=== PATIENT | female | born 1950 | race Caucasian/White ===

== ENCOUNTER → 2016-06-07 | Outpatient (CLI) | payer OTHER ==
[~2016-06-07] MED LIST: ASPIRIN81 M1 PO; B-121000 MCG PO; BACTROBAN OINT22 GM PO; CIPRO250 MG PO; COREG6.25 MG PO; GLIPIZIDE5 MG PO; LASIX40 MG PO; LEVOTHYROXINE0.2 MG PO; LISINOPRIL20 MG PO; LYRICA50 MG PO; METFORMIN1000 MG PO; PERCOCET 325 MG1 TA2 PO; POTASSIUM20 MEQ PO; PRENATAL 1 PLUS1 TAB PO; PROTONIX40 MG PO; ROCEPHIN1 GM/50 M1 IV; SIMVASTATIN40 MG PO; SYNTHROID,LEV125 MCG PO; SYNTHROID0.15 MG PO; VITAMIN D32000 I1 PO
[2016-06-07 11:55] LABS: BASO % 0.5 % (0.0-1.0); EOS # 0.3 10*3/uL (0.0-0.4); EOS % 4.4 % (1.0-4.0); HEMATOCRIT 37.8 % (37.0-47.0); HEMOGLOBIN 11.8 g/dl (12.0-16.0); LYMPH % 16.8 % (27.0-41.0); MEAN CELL VOLUME 91.1 fl (81.0-99.0); MEAN CORPUSCULAR HGB 28.4 pg (27.0-31.0); MEAN CORPUSCULAR HGB CONC 31.2 g/dl (33.0-37.0); MEAN PLATELET VOLUME 11.8 fl (9.6-12.3); MONO # 0.9 10*3/uL (0.1-1.0); MONO % 13.9 % (3.0-9.0); NEUT # 3.9 10*3/uL (2.3-7.9); NEUT % 63.9 % (47.0-73.0); PLATELET COUNT AUTOMATED 174 10*3/uL (130-400); RED BLOOD COUNT 4.15 10*6/uL (4.10-5.10); RED CELL DISTRI WIDTH 13.2 % (0-14.5); WHITE BLOOD COUNT 6.1 10*3/uL (4.8-10.8)
[2016-06-07 12:21] LABS: CPK 41 U/L (26-192)
[2016-06-07 12:22] LABS: TROPONIN I < 0.015 ng/ml (<0.5)
== END | disposition home or self-care (01) ==
LOC: LAB 11:28
PROVIDERS: Nurse Practitioner
DX: R07.9 Chest pain, unspecified (principal)

== ENCOUNTER 2016-08-15 12:11 | Inpatient (IN) | payer OTHER ==
[~2016-08-15] VITALS: Ht 167.6 cm; Wt 92.6 kg
[2016-08-15 12:34] VITALS: BP 164/76
[2016-08-15 14:23] LABS: BASO % 0.6 % (0.0-1.0); EOS # 0.3 10*3/uL (0.0-0.4); EOS % 4.7 % (1.0-4.0); HEMATOCRIT 31.4 % (37.0-47.0); HEMOGLOBIN 9.7 g/dl (12.0-16.0); LYMPH # 1.3 10*3/uL (1.3-4.4); LYMPH % 19.9 % (27.0-41.0); MEAN CELL VOLUME 96.9 fl (81.0-99.0); MEAN CORPUSCULAR HGB 29.9 pg (27.0-31.0); MEAN CORPUSCULAR HGB CONC 30.9 g/dl (33.0-37.0); MEAN PLATELET VOLUME 10.3 fl (9.6-12.3); MONO # 0.4 10*3/uL (0.1-1.0); MONO % 5.9 % (3.0-9.0); NEUT # 4.5 10*3/uL (2.3-7.9); NEUT % 68.3 % (47.0-73.0); PLATELET COUNT AUTOMATED 157 10*3/uL (130-400); RED BLOOD COUNT 3.24 10*6/uL (4.10-5.10); WHITE BLOOD COUNT 6.6 10*3/uL (4.8-10.8)
[2016-08-15 14:30] LABS: PROTHROMBIN TIME 10.3 SECONDS (9.0-12.4)
[2016-08-15 14:38] LABS: ALBUMIN 2.7 gm/dl (3.1-4.5); BILIRUBIN, TOTAL 0.4 mg/dl (0.2-1.0); POTASSIUM 5.1 mmol/L (3.5-5.1); TOTAL PROTEIN 6.1 gm/dL (6.4-8.2)
[2016-08-15 15:15] VITALS: BP 158/76
[2016-08-15 16:40] VITALS: BP 170/62
[2016-08-15] MEDS ORDERED: K-TAB10 MEQ PO (18:01)
[2016-08-15 18:02] LABS: CKMB 1.3 ng/ml (0.5-3.6); TROPONIN I 0.026 ng/ml (<0.045)
[2016-08-15 20:00] VITALS: BP 171/67
[2016-08-15 21:30] VITALS: BP 154/64
[2016-08-16] VITALS: BP 129/65
[2016-08-16 00:45] LABS: TROPONIN I 0.018 ng/ml (<0.045)
[2016-08-16 05:50] LABS: CKMB 0.9 ng/ml (0.5-3.6); TROPONIN I 0.017 ng/ml (<0.045)
[2016-08-16 06:06] LABS: HEMOGLOBIN A1c 7.1 % (4.8-5.6)
[2016-08-16 06:13] LABS: BASO % 0.5 % (0.0-1.0); EOS # 0.2 10*3/uL (0.0-0.4); EOS % 2.4 % (1.0-4.0); LYMPH # 1.7 10*3/uL (1.3-4.4); LYMPH % 25.2 % (27.0-41.0); MEAN CELL VOLUME 96.3 fl (81.0-99.0); MEAN CORPUSCULAR HGB 29.6 pg (27.0-31.0); MEAN CORPUSCULAR HGB CONC 30.8 g/dl (33.0-37.0); MEAN PLATELET VOLUME 11.2 fl (9.6-12.3); MONO # 0.6 10*3/uL (0.1-1.0); MONO % 8.5 % (3.0-9.0); NEUT # 4.1 10*3/uL (2.3-7.9); NEUT % 62.9 % (47.0-73.0); PLATELET COUNT AUTOMATED 164 10*3/uL (130-400); RED CELL DISTRI WIDTH 14.9 % (0-14.5); WHITE BLOOD COUNT 6.6 10*3/uL (4.8-10.8)
[2016-08-16 06:16] LABS: ALBUMIN 2.5 gm/dl (3.1-4.5); BILIRUBIN, TOTAL 0.4 mg/dl (0.2-1.0); FREE T4 0.41 ng/dl (0.76-1.46); MAGNESIUM 1.8 mg/dL (1.5-2.1); PHOSPHOROUS 3.6 mg/dL (2.5-4.9); POTASSIUM 4.6 mmol/L (3.5-5.1); TOTAL PROTEIN 5.4 gm/dL (6.4-8.2)
[2016-08-16 06:21] LABS: THYROID STIM HORMONE (HS) 8.93 uIU/ml (0.358-4.75)
[2016-08-16 06:36] LABS: PROTHROMBIN TIME 10.5 SECONDS (9.0-12.4)
[2016-08-16 07:39] LABS: FOLIC ACID > 24.00 ng/mL (>5.38)
[2016-08-16 08:00] VITALS: BP 134/56
[2016-08-16 11:02] LABS: VITAMIN D, 25-HYDROXY 12.9 ng/mL (30-100)
[2016-08-16 12:00] VITALS: BP 133/67
[2016-08-16 16:00] VITALS: BP 138/60
== END 2016-08-16 17:55 | disposition short-term general hospital (02) | DRG 533 ==
LOC: ED 12:11 → 5E 15:54 → EDHOLD 15:54 → 5E 16:10
PROVIDERS: Internal Medicine; Nurse Practitioner Family
DX: S72.401A Unspecified fracture of lower end of right femur, initial encounter for closed fracture (principal); E43 Unspecified severe protein-calorie malnutrition; E87.0 Hyperosmolality and hypernatremia; I13.0 Hypertensive heart and chronic kidney disease with heart failure and stage 1 through stage 4 chronic kidney disease, or unspecified chronic kidney disease; I50.42 Chronic combined systolic (congestive) and diastolic (congestive) heart failure; E03.9 Hypothyroidism, unspecified; Z96.1 Presence of intraocular lens; F17.210 Nicotine dependence, cigarettes, uncomplicated; E11.65 Type 2 diabetes mellitus with hyperglycemia; E78.5 Hyperlipidemia, unspecified; W19.XXXA Unspecified fall, initial encounter; E11.49 Type 2 diabetes mellitus with other diabetic neurological complication; E11.22 Type 2 diabetes mellitus with diabetic chronic kidney disease; N18.3 Chronic kidney disease, stage 3 (moderate); I25.10 Atherosclerotic heart disease of native coronary artery without angina pectoris; I25.2 Old myocardial infarction; Z90.710 Acquired absence of both cervix and uterus; Z98.49 Cataract extraction status, unspecified eye; Z82.49 Family history of ischemic heart disease and other diseases of the circulatory system; Z98.84 Bariatric surgery status; Z80.0 Family history of malignant neoplasm of digestive organs; Z80.3 Family history of malignant neoplasm of breast; Z80.41 Family history of malignant neoplasm of ovary; Z88.2 Allergy status to sulfonamides; Z88.8 Allergy status to other drugs, medicaments and biological substances; Z79.82 Long term (current) use of aspirin; Z79.899 Other long term (current) drug therapy; Z68.25 Body mass index [BMI] 25.0-25.9, adult; Y93.89 Activity, other specified; Y92.89 Other specified places as the place of occurrence of the external cause; Y99.8 Other external cause status

== ENCOUNTER → 2017-05-06 | Outpatient (CLI) | payer OTHER ==
[~2017-05-06] MED LIST changes: +K-TAB10 MEQ PO
[2017-05-06 10:11] LABS: BASO # 0.1 10*3/uL (0.0-0.1); BASO % 0.8 % (0.0-1.0); EOS # 0.2 10*3/uL (0.0-0.4); EOS % 3.2 % (1.0-4.0); HEMATOCRIT 36.9 % (37.0-47.0); HEMOGLOBIN 11.6 g/dl (12.0-16.0); LYMPH # 1.4 10*3/uL (1.3-4.4); LYMPH % 22.9 % (27.0-41.0); MEAN CELL VOLUME 97.6 fl (81.0-99.0); MEAN CORPUSCULAR HGB 30.7 pg (27.0-31.0); MEAN CORPUSCULAR HGB CONC 31.4 g/dl (33.0-37.0); MEAN PLATELET VOLUME 10.4 fl (9.6-12.3); MONO # 0.4 10*3/uL (0.1-1.0); MONO % 7.3 % (3.0-9.0); NEUT # 3.9 10*3/uL (2.3-7.9); NEUT % 65.3 % (47.0-73.0); PLATELET COUNT AUTOMATED 180 10*3/uL (130-400); RED BLOOD COUNT 3.78 10*6/uL (4.10-5.10); RED CELL DISTRI WIDTH 13.4 % (0-14.5); WHITE BLOOD COUNT 5.9 10*3/uL (4.8-10.8)
[2017-05-06 10:43] LABS: ALBUMIN 2.9 gm/dl (3.1-4.5); CREATININE 2.23 mg/dL (0.55-1.02); POTASSIUM 4.9 mmol/L (3.5-5.1); TOTAL PROTEIN 7.1 gm/dL (6.4-8.2)
[2017-05-06 11:06] LABS: FREE T4 0.48 ng/dl (0.76-1.46)
== END | disposition home or self-care (01) ==
LOC: LAB 09:47
PROVIDERS: Family Medicine
DX: R06.02 Shortness of breath (principal); I10 Essential (primary) hypertension; E03.9 Hypothyroidism, unspecified; E11.9 Type 2 diabetes mellitus without complications

== ENCOUNTER → 2017-12-23 | Outpatient (CLI) | payer OTHER | END | disposition home or self-care (01) | LOC: RAD 16:17 | DX: J44.9 Chronic obstructive pulmonary disease, unspecified (principal); I51.7 Cardiomegaly; J90 Pleural effusion, not elsewhere classified; I10 Essential (primary) hypertension; E11.9 Type 2 diabetes mellitus without complications; Z95.5 Presence of coronary angioplasty implant and graft; Z90.710 Acquired absence of both cervix and uterus; Z87.891 Personal history of nicotine dependence ==

== ENCOUNTER 2019-04-08 12:14 | Emergency (ER) | payer OTHER ==
[~2019-04-08] VITALS: Ht 172.7 cm; Wt 90.7 kg
[2019-04-08 13:08] LABS: HEMATOCRIT 25.9 % (37.0-47.0); HEMOGLOBIN 7.5 g/dl (12.0-16.0); MEAN CELL VOLUME 99.2 fl (81.0-99.0); MEAN CORPUSCULAR HGB 28.7 pg (27.0-31.0); MEAN PLATELET VOLUME 10.3 fl (9.6-12.3); PLATELET COUNT AUTOMATED 250 10*3/uL (130-400); RED BLOOD COUNT 2.61 10*6/uL (4.10-5.10); RED CELL DISTRI WIDTH 14.2 % (0-14.5); WHITE BLOOD COUNT 19.2 10*3/uL (4.8-10.8)
[2019-04-08 13:33] LABS: ALBUMIN 1.9 gm/dl (3.1-4.5); CREATININE 2.75 mg/dL (0.55-1.02); POTASSIUM 4.7 mmol/L (3.5-5.1); TOTAL PROTEIN 6.4 gm/dL (6.4-8.2)
[2019-04-08 13:34] LABS: ACANTHOCYTES FEW; OVALOCYTES FEW; PLATELET SUFFICIENCY NORMAL (NORMAL); POLYCHROMASIA SLIGHT; TOTAL CELLS COUNTED 100 #CELLS
[2019-04-08 13:35] LABS: SCHISTOCYTES FEW
[2019-04-08 14:36] VITALS: BP 112/49
== END 2019-04-08 15:21 | disposition short-term general hospital (02) ==
LOC: ED 12:14
PROVIDERS: Physician Assistant
DX: E11.52 Type 2 diabetes mellitus with diabetic peripheral angiopathy with gangrene (principal); A48.0 Gas gangrene; E11.40 Type 2 diabetes mellitus with diabetic neuropathy, unspecified; I25.10 Atherosclerotic heart disease of native coronary artery without angina pectoris; I25.2 Old myocardial infarction; I10 Essential (primary) hypertension; E78.00 Pure hypercholesterolemia, unspecified; M79.89 Other specified soft tissue disorders; F17.200 Nicotine dependence, unspecified, uncomplicated; Z88.2 Allergy status to sulfonamides; Z79.899 Other long term (current) drug therapy; Z79.82 Long term (current) use of aspirin; Z90.710 Acquired absence of both cervix and uterus; Z89.422 Acquired absence of other left toe(s)

== ENCOUNTER 2019-06-06 05:29 | Inpatient (IN) | payer OTHER, MEDICAID ==
[~2019-06-06] VITALS: Ht 172.7 cm; Wt 84.6 kg
[2019-06-06] VITALS (8 sets, daily range): BP systolic 97–146; BP diastolic 33–74
[2019-06-06 06:17] LABS: BASO % 0.6 % (0.0-1.0); EOS # 0.1 10*3/uL (0.0-0.4); EOS % 1.5 % (1.0-4.0); HEMATOCRIT 33.1 % (37.0-47.0); HEMOGLOBIN 9.3 g/dl (12.0-16.0); LYMPH # 0.5 10*3/uL (1.3-4.4); LYMPH % 10.9 % (27.0-41.0); MEAN CELL VOLUME 103.8 fl (81.0-99.0); MEAN CORPUSCULAR HGB 29.2 pg (27.0-31.0); MEAN CORPUSCULAR HGB CONC 28.1 g/dl (33.0-37.0); MEAN PLATELET VOLUME 10.8 fl (9.6-12.3); MONO # 0.2 10*3/uL (0.1-1.0); MONO % 4.1 % (3.0-9.0); NEUT # 3.9 10*3/uL (2.3-7.9); NEUT % 82.7 % (47.0-73.0); PLATELET COUNT AUTOMATED 163 10*3/uL (130-400); RED BLOOD COUNT 3.19 10*6/uL (4.10-5.10); RED CELL DISTRI WIDTH 14.9 % (0-14.5); WHITE BLOOD COUNT 4.7 10*3/uL (4.8-10.8)
[2019-06-06 06:32] LABS: ALBUMIN 2.8 gm/dl (3.1-4.5); ALKALINE PHOSPHATASE 115 U/L (45-117); BUN 40 mg/dl (7-24); CHLORIDE 118 mmol/L (98-107); CREATININE 3.46 mg/dL (0.55-1.02); POTASSIUM 5.3 mmol/L (3.5-5.1); SGOT/AST 15 IU/L (3-35); SGPT/ALT 21 U/L (12-78); SODIUM 144 mmol/L (136-145); TOTAL PROTEIN 6.6 gm/dL (6.4-8.2)
[2019-06-06 06:46] LABS: TROPONIN I < 0.015 ng/ml (<0.045)
--- NOTE | 2019-06-06 07:02 | NUR ---
REPORT FROM TYLER POPE AT THIS TIME. PATIENT IS LAYING IN BED AT THIS TIME APPEARS IN NO DISTRESS. WILL CONTINUE TO MONITOR.
--- NOTE | 2019-06-06 07:25 | NUR ---
FOELY CATH INSERTED PER VERBAL ORDER OF DR BLANCO.
--- NOTE | 2019-06-06 08:35 | NUR ---
PATIENT REPORT GIVEN TO [place] RN AT BEDSIDE. NO CHANGE IN PATIENT STATUS.
--- NOTE | 2019-06-06 08:37 | NUR ---
A 69, admitted to , under the services of JOSE Fonseca DO with a diagnosis of CHF, FALL. PULMONARY EDEMA. Chief complaint is UNWITNESSED FALL. Patient arrived via ambulance from ER. Monitor applied. Initial assessment completed. Vital signs taken and recorded. JOSE FONSECA DO notified of admission to the unit. Orders received. See assessment for past medical history, medications and allergies. Patient and/or family oriented to unit. [facility] visitation policy reviewed. Clothing/patient valuable form completed. LYNNE BEAULIEU
[2019-06-06] MEDS ORDERED: GOOD NEIGHBOR100 M2 PO (09:04)
[2019-06-06] MEDS ORDERED: LEVOTHYROXINE175 MCG PO (09:05)
[2019-06-06] MEDS ORDERED: SANTYL30 GM T (09:05)
[2019-06-06] MEDS ORDERED: FUROSEMIDE40 MG PO (09:07)
[2019-06-06] MEDS ORDERED: CARVEDILOL12.5 MG PO (09:08)
[2019-06-06] MEDS ORDERED: AUGMENTIN 875875 MG PO (09:10)
[2019-06-06] MEDS ORDERED: CETIRIZINE HYDR10 MG PO (09:12)
[2019-06-06] MEDS ORDERED: LISINOPRIL20 MG PO (09:13)
--- NOTE | 2019-06-06 09:20 | NUR ---
IN TO SEE PT.
[2019-06-06] MEDS ORDERED: SEPTDS PO (09:51)
--- NOTE | 2019-06-06 09:52 | NUR ---
MED REC UPDATED WITH PT AT BEDSIDE VIA BOTTLES FROM HOME.
--- NOTE | 2019-06-06 10:24 | NUR ---
MADE AWARE OF WOUNDS. WOUND CARE ORDERS REQUESTED. SAID SHE WOULD ORDER CONSULT FOR PODIATRY FOR LEFT HEEL WOUND.
--- NOTE | 2019-06-06 11:13 | NUR ---
MESSAGE FOR NEW CONSULT LEFT WITH KERRY FOR . SAID SHE WOULD PASS IT ON TO HIM.
--- NOTE | 2019-06-06 11:15 | NUR ---
PODIATRY RESIDENT NOTIFIED OF CONSULT. WILL BE MAKING ROUNDS LATER TODAY.
--- NOTE | 2019-06-06 12:32 | NUR ---
PHYSICAL THERAPY Screen and eval received will follow, thank you Aminah Waggoner PT
--- NOTE | 2019-06-06 12:59 | NUR ---
Occupational therapy orders and nursing screen received. Will follow up with patient for OT eval. Thank you. Rebecca Malone OTR/L
--- NOTE | 2019-06-06 14:56 | NUR ---
Patient is current with Adam CEBALLOS RN/PT/OT/Aide p: [phone] F:[phone]
--- NOTE | 2019-06-06 15:15 | NUR ---
PODIATRY IN TO SEE PT. DRSG TO LEFT HEEL PLACED. CURRENTLY AWAITING ORDERS TO BE PLACED. SAID HE WOULD ADD ORDERS IN TODAY.
--- NOTE | 2019-06-06 15:50 | NUR ---
VISITING WITH FAMILY. ASKED TO COME BACK AT LATER TIME FOR DISIMPACTION.
--- NOTE | 2019-06-06 17:45 | NUR ---
POORLY TOLERATED MANUAL DISIMPACTION. SOAP SUDS ENEMA GIVEN PER VERBAL ORDER BY . DID NOT RETAIN LONG. SCANT AMOUNT OF SOFT STOOL OUT. REQUESTED TO STOP MANUAL DISIMPACATION AND BE PLACED ON BSC. PT ASSISTED TO BSC WITH 2xASSIST. CALL LIGHT IN REACH. WILL MONITOR.
--- NOTE | 2019-06-06 18:17 | NUR ---
VERY LARGE BM ON BSC. PT STATES SHE "FEELS WORN OUT" NOW. VSS. CALL LIGHT IN REACH. ALSO REPORTING RELIEF. BED ALARM ON.
[2019-06-06 19:15] LABS: CLARITY SL CLOUDY (CLEAR); COLOR YELLOW (YELLOW)
[2019-06-06 19:16] LABS: BLOOD 1+ (NEGATIVE); LEUKO ESTERASE 1+ (NEGATIVE); SPECIFIC GRAVITY 1.015 (1.005-1.030)
[2019-06-06 19:17] LABS: BILIRUBIN NEGATIVE (NEGATIVE); GLUCOSE NEGATIVE (NEGATIVE); KETONE NEGATIVE (NEGATIVE); NITRITE NEGATIVE (NEGATIVE); UROBILINOGEN 0.2 E.U./dl (0.2-1.0)
[2019-06-06 19:18] LABS: BACTERIA 1+; RBC 16-20 rbc/hpf (0-2)
[2019-06-06 19:25] LABS: URINE CREATININE RANDOM 17.6 mg/dL
[2019-06-06 19:26] LABS: URINE CREATININE RANDOM 17.6 mg/dL
--- NOTE | 2019-06-06 20:05 | NUR ---
1930 RESTING IN BED WITH HOB ELEVATED. SIDE RAILS UP X'S 2. CALL LIGHT IN REACH. HEP LOCK INTACT. OLD SKIN TEARS NOTED LARM. DRSG D/I TO R STUMP. DRSG INTACT TO L FOOT. NO C/O'S VOICED. NO DISTRESS NOTED.
--- NOTE | 2019-06-06 22:10 | NUR ---
resting in bed with eyes closed. appears to be sleeping.
[2019-06-07] VITALS: BP 102/47
--- NOTE | 2019-06-07 04:28 | NUR ---
REMAINS SLEEPING WITHOUT DISTRESS.
[2019-06-07 06:05] LABS: BASO # 0.1 10*3/uL (0.0-0.1); BASO % 1.1 % (0.0-1.0); EOS # 0.2 10*3/uL (0.0-0.4); EOS % 2.8 % (1.0-4.0); HEMATOCRIT 29.2 % (37.0-47.0); HEMOGLOBIN 8.3 g/dl (12.0-16.0); LYMPH % 19.4 % (27.0-41.0); MEAN CELL VOLUME 102.5 fl (81.0-99.0); MEAN CORPUSCULAR HGB 29.1 pg (27.0-31.0); MEAN CORPUSCULAR HGB CONC 28.4 g/dl (33.0-37.0); MEAN PLATELET VOLUME 11.2 fl (9.6-12.3); MONO # 0.3 10*3/uL (0.1-1.0); MONO % 6.2 % (3.0-9.0); NEUT # 3.7 10*3/uL (2.3-7.9); NEUT % 70.3 % (47.0-73.0); PLATELET COUNT AUTOMATED 154 10*3/uL (130-400); RED BLOOD COUNT 2.85 10*6/uL (4.10-5.10); RED CELL DISTRI WIDTH 15.1 % (0-14.5); WHITE BLOOD COUNT 5.3 10*3/uL (4.8-10.8)
--- NOTE | 2019-06-07 06:10 | NUR ---
SLEPT WELL THIS SHIFT. AWAKENED FOR AM MEDS. REMAINS WITHOUT C/O'. SWAPNA PATENT. CONDITION GUARDED.
[2019-06-07 06:26] LABS: POTASSIUM 5.2 mmol/L (3.5-5.1)
[2019-06-07 06:31] LABS: ALBUMIN 2.5 gm/dl (3.1-4.5); CREATININE 3.5 mg/dL (0.55-1.02); PHOSPHOROUS 4.1 mg/dL (2.5-4.9); THYROID STIM HORMONE (HS) 0.937 uIU/ml (0.358-4.75)
[2019-06-07 07:53] VITALS: BP 106/68
--- NOTE | 2019-06-07 09:00 | NUR ---
Pe Electrical Engineer in to talk to patient. Patient states lives at home with mo. There are 5 steps in the home. Physician: damion sorensen Pharmacy: [facility] services: [facility] Patient's level of ADLs: MINIMAL ASSIST Patient has working utilities: all working DME: walker, hospital bed, bedside commond and wheelchair Follow-up physician's appointment after d/c: will be made by hospitalist nurse director upon discharge Does patient want to access PORTAL?: no Discharge plan discussed with patient, she states she lives at home with her grandson, she has 5 steps to the upper level but she stays on the first floor, she has a hospital bed, bedside commode, walker and wheelchair, she was discharged from [facility] 3 weeks ago and currently has [facility], she states she has an assessment on Tuesday from [employer] [facility] and will have aids from [facility] 5 days a week from -11 she states he mo helps her with whatever she may needs, she states 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 VIVIAN ARBOLEDA
[2019-06-07 09:26] LABS: VITAMIN D, 25-HYDROXY 51.4 ng/mL (30-100)
--- NOTE | 2019-06-07 09:43 | NUR ---
This nurse went to evaluate patient at this time for skin impairments and patient was off the floor for testing at this time.
--- NOTE | 2019-06-07 10:15 | NUR ---
JAROCHO contacted [facility] to see if the patient has a Territory Service Representative. JAROCHO left message for Elayne Guallpa-[facility] at [phone]. Alternative number is [phone].
[2019-06-07 12:00] VITALS: BP 98/45
--- NOTE | 2019-06-07 12:31 | NUR ---
Contacted [facility] and confirmed they are current with this patient. Received order to resume home health. Faxed order and clinicals with estimated discharge date of 06/07 or 06/08
--- NOTE | 2019-06-07 12:42 | NUR ---
DRESSING CHANGE COMPLETED TO LEFT HEEL PER DR DAVIS'S ORDER.PT TOLERATED WELL.VOICES NO OTHER NEEDS AT THIS TIME. CALL LIGHT IN REACH.
--- NOTE | 2019-06-07 14:22 | NUR ---
DR PEARCE NOTIFIED OF NEW CONSULT FOR PALLIATIVE CARE.
--- NOTE | 2019-06-07 15:02 | NUR ---
Discharge instructions reviewed with patient/family. Patient receptive and verbalizes understanding. Follow-up care arranged. Written instructions given to patient/family.PT D/C TO INPATIENT [facility]. JONATHAN MOSLEY
[2019-06-07 16:00] VITALS: BP 135/62
--- NOTE | 2019-06-07 18:35 | NUR ---
DRESSING CHANGE TO RIGHT AKA STUMP PER PHYSICIAN ORDER. PT TOLERATED WELL. VOICES NO NEEDS AT THIS TIME CALL LIGHT IN REACH.
[2019-06-07 20:00] VITALS: BP 127/55
--- NOTE | 2019-06-07 20:18 | NUR ---
1946 RESTING IN BED WITH HOB ELEVATED. PT IS ALERT AND ORIENTED. DENIES C/O'S PAIN OR DISCOMFORT. BANDAID DRSG INTACT TO R AKA STUMP. DRSG IN TACT TO LEFT FOOT WITH NO DRNG NOTED. BARCENAS PATENT. HEP LOCK INTACT. DR. PEARCE IN TO SEE PT AND DISCUSS PALLIATIVE CARE.
--- NOTE | 2019-06-07 22:11 | NUR ---
RESTING IN BED WITH EYES CLOSED. REMAINS WIHTOUT C/O'S.
[2019-06-08] VITALS: BP 102/52
--- NOTE | 2019-06-08 00:06 | NUR ---
RESTING IN BED WITH EYES CLOSED. APPEARS TO BE SLEEPING.
--- NOTE | 2019-06-08 06:08 | NUR ---
AWAKENED FOR AM MEDS. REMAINS WITHOUT C/O'S. BARCENAS PATENT. RESPIRATIONS EASY. CONDITION GUARDED.
[2019-06-08 06:24] LABS: BASO % 0.8 % (0.0-1.0); EOS # 0.2 10*3/uL (0.0-0.4); EOS % 3.6 % (1.0-4.0); HEMATOCRIT 29.6 % (37.0-47.0); HEMOGLOBIN 8.4 g/dl (12.0-16.0); LYMPH # 1.2 10*3/uL (1.3-4.4); LYMPH % 23.1 % (27.0-41.0); MEAN CELL VOLUME 102.4 fl (81.0-99.0); MEAN CORPUSCULAR HGB 29.1 pg (27.0-31.0); MEAN CORPUSCULAR HGB CONC 28.4 g/dl (33.0-37.0); MEAN PLATELET VOLUME 11.4 fl (9.6-12.3); MONO # 0.4 10*3/uL (0.1-1.0); MONO % 7.8 % (3.0-9.0); NEUT # 3.2 10*3/uL (2.3-7.9); NEUT % 64.3 % (47.0-73.0); PLATELET COUNT AUTOMATED 150 10*3/uL (130-400); RED BLOOD COUNT 2.89 10*6/uL (4.10-5.10); RED CELL DISTRI WIDTH 15.2 % (0-14.5)
[2019-06-08 06:38] LABS: ALBUMIN 2.5 gm/dl (3.1-4.5); CREATININE 3.46 mg/dL (0.55-1.02); POTASSIUM 5.2 mmol/L (3.5-5.1); TOTAL PROTEIN 5.9 gm/dL (6.4-8.2)
[2019-06-08 08:00] VITALS: BP 122/60; BP 142/72
--- NOTE | 2019-06-08 08:26 | NUR ---
KATT SANDS [id number] Please refer to the physician's history and physical for past medical history, comorbid conditions, and allergies. Diagnosis: FALL PULMONARY EDEMA CHF EXACERBATION Vitor Score: 14,MODERATE RISK WOUND DESCRIPTIONS: Wound Number: 1 Location of the wound: left heel Type of wound: DTI Size: 5.0cm x 5.7cm x 0.1cm Tunneling: none Undermining: none Sinus Tract: none Presence of Exudate: Serosanguineous Amount: Light Color: Purple, red Odor: None Periwound Skin Appearance: Normal Wound edges: approximated Pain (associated with wound): none at time of assessment pt states she has neuropathy and has no feeling How does patient state this happened? pt stated this started at as a blister and then it popped Wound Number: 2 Location of the wound: left upper cruz Thickness: Full Size: 0.3cm x 0.6cm x <0.1cm Tunneling: none Undermining: none Sinus Tract: none Presence of Exudate: Serous Amount: Moderate Color: Red Odor: None Periwound Skin Appearance: Edema Wound edges: approximated Pain (associated with wound): none at time of assessment How does patient state this happened? pt unsure how this happened Wound Number: 3 Location of the wound: right proximal Type of wound: skin tear Thickness: Partial Size: 0.7cm x 0.5cm x 0.1cm Tunneling: none Undermining: none Sinus Tract: none Presence of Exudate: Serosanguineous Amount: Light Color: Red Odor: None Periwound Skin Appearance: Normal Wound edges: approximated Pain (associated with wound): none at time of assessment How does patient state this happened? pt states this is from her fingernail in the ambulance she picked herself and tore her skin open Wound Number: 4 Location of the wound: right shoulder lateral Type of wound: scab Thickness: Partial Size: 0.6cm x 0.5cm x <0.1cm Tunneling: none Undermining: none Sinus Tract: none Presence of Exudate: none Amount: None Color: Red Odor: None Periwound Skin Appearance: Normal Wound edges: approximated Pain (associated with wound): none at time of assessment How does patient state this happened? pt states this is from her picking at herself Wound Number: 5 Location of the wound: right knee amputation site Type of wound: surgical Thickness: Full Size: 0.5cm x 0.7cm x <0.1cm Tunneling: none Undermining: none Sinus Tract: none Presence of Exudate: none Amount: None Color: black Odor: None Periwound Skin Appearance: scar tissue Wound edges: approximated Pain (associated with wound): none at time of assessment How does patient state this happened? pt states this is from surgery and never healed and she follows with surgeon for this area and doesn't have a prothesis yet Wound Number: 6 Sacrum is red and blanchable at time of assessment. No open areas noted at time of assessment. No drainage noted at time of assessment. Wound Number: 7 Location of the wound: right forearm distal Type of wound: skintear Thickness: Partial Size: 1.0cm x 1.0cm x 0.1cm Tunneling: none Undermining: none Sinus Tract: none Presence of Exudate: serosanguineous Amount: light Color: Red Odor: None Periwound Skin Appearance: Normal Wound edges: approximated Pain (associated with wound): none at time of assessment How does patient state this happened? pt states this is from her fingernail in the ambulance she picked herself and tore her skin open Wound Number: 8 Location of the wound: left 2nd toe Type of wound: unstageable Thickness: Full Size: 0.6cm x 0.5cm x <0.1cm Tunneling: none Undermining: none Sinus Tract: none Presence of Exudate: none Amount: None Color: brown Odor: None Periwound Skin Appearance: Normal Wound edges: approximated Pain (associated with wound): none at time of assessment How does patient state this happened? pt states she is unsure how this started Wound Number: 9 Location of the wound: right shoulder medial Type of wound: scab Thickness: Partial Size: 0.7cm x 0.7cm x <0.1cm Tunneling: none Undermining: none Sinus Tract: none Presence of Exudate: none Amount: None Color: Red Odor: None Periwound Skin Appearance: Normal Wound edges: approximated Pain (associated with wound): none at time of assessment How does patient state this happened? pt states this is from her picking at herself Wound Number: 10 Location of the wound: right shoulder distal Type of wound: scab Thickness: Partial Size: 1.3cm x 0.9cm x <0.1cm Tunneling: none Undermining: none Sinus Tract: none Presence of Exudate: none Amount: None Color: Red Odor: None Periwound Skin Appearance: Normal Wound edges: approximated Pain (associated with wound): none at time of assessment How does patient state this happened? pt states this is from her picking at herself Patient has intact scabbed areas noted to left forearm and left elbow. No drainage at time of assessment. No redness at time of assessment. Surface the patient is resting on: Isoflex SKIN PREVENTION RECOMMENDATION: Podiatry is already on consult Arterial studies where done on 06/07/19 D/C skin tear guidelines to right forearm D/C stage 2 guidelines to left heel from 1507. Continue stage 2 guidelines to left heel from podiatry. continue dressing change to right stump patient to provide medication. Skin tear guidelines: Cleanse right forearm proximal, right forearm distal with nss and apply sureprep around the wound hydrogel to wound bed and cover with optifoam gentle every 2 days and prn for soiling. Full thicknes guidelines: Cleanse left upper cruz with nss and apply sureprep around the wound maxorb II to wound bed and cover with optifoam gentle daily and prn for soiling. 1. Pressure redistribution support surface as appropriate 2. Elevate heels 3. Remove boots/TEDS every shift and reapply 4. Head of bed 30 degrees as tolerated 5. Assess nutrition and hydration 6. Manage moisture 7. Avoid the use of containment devices while in bed 8. Use absorptive products on surfaces limit layers of linens on bed 9. Turn and reposition every 1-2 hours in bed and every 1 hour in chair as tolerated 10. Weight shifts every 15 minutes while up in chair 11. Offloading with pillows or device to keep heels elevated off bed 12. Monitor skin at least every shift 13. Inspect under medical devices twice a day WOUND TREATMENT RECOMMENDATIONS:
--- NOTE | 2019-06-08 09:00 | NUR ---
case management visits with patient, she states she will return home when medically stable and will have [facility] and palliative care, case management will follow
--- NOTE | 2019-06-08 09:29 | NUR ---
Dr. Dalton notified of wound care recommendations.
[2019-06-08 12:00] VITALS: BP 123/59
--- NOTE | 2019-06-08 12:42 | NUR ---
JAROCHO received call from [facility]. They partner with [facility], he will forward the referral over to them. SPECTROGRAPH OPERATOR faxed new referral to [facility]. -JAROCHO Ewing
--- NOTE | 2019-06-08 14:10 | NUR ---
Occupational Therapy evaluation completed on 4 with full eval to follow. Precautions include right AKA, Left heel wound,moderate complexity level 77208, fall risk; bed alarm. Recommend OT for ADL training, transfer training and safety and home w/ family and home health OT,PT,SN, Thank you. Yoselin Parker OTR/L
--- NOTE | 2019-06-08 15:55 | NUR ---
PHYSICAL THERAPY Carol completed moderate complexity full report to follow pt could benefit from SNF prior to home however per pt was "just there a few weeks ago" and only wants to go home with HH. PT to work on transfers, strengthening and w/c mobility. Aminah Waggoner PT
[2019-06-08 16:00] VITALS: BP 134/62
[2019-06-08 20:00] VITALS: BP 118/54
--- NOTE | 2019-06-08 22:50 | NUR ---
RECEIVED REPORT ON PATIENT AT THIS TIME, TAKING OVER PATIENT CARE AT THIS TIME.
[2019-06-09] VITALS: BP 112/51
[2019-06-09 06:26] LABS: BASO % 0.8 % (0.0-1.0); EOS # 0.2 10*3/uL (0.0-0.4); EOS % 4.3 % (1.0-4.0); HEMOGLOBIN 8.2 g/dl (12.0-16.0); LYMPH % 20.2 % (27.0-41.0); MEAN CELL VOLUME 102.1 fl (81.0-99.0); MEAN CORPUSCULAR HGB 28.9 pg (27.0-31.0); MEAN CORPUSCULAR HGB CONC 28.3 g/dl (33.0-37.0); MEAN PLATELET VOLUME 11.2 fl (9.6-12.3); MONO # 0.3 10*3/uL (0.1-1.0); MONO % 6.7 % (3.0-9.0); NEUT # 3.5 10*3/uL (2.3-7.9); NEUT % 67.8 % (47.0-73.0); PLATELET COUNT AUTOMATED 144 10*3/uL (130-400); RED BLOOD COUNT 2.84 10*6/uL (4.10-5.10); RED CELL DISTRI WIDTH 15.1 % (0-14.5); WHITE BLOOD COUNT 5.1 10*3/uL (4.8-10.8)
[2019-06-09 06:52] LABS: ALBUMIN 2.3 gm/dl (3.1-4.5); CREATININE 3.04 mg/dL (0.55-1.02); POTASSIUM 4.9 mmol/L (3.5-5.1); TOTAL PROTEIN 5.8 gm/dL (6.4-8.2)
[2019-06-09 08:00] VITALS: BP 122/60
--- NOTE | 2019-06-09 10:47 | NUR ---
DR. STOCKTON NOTIFIED OF DROPPED BEAT AND A HR IN THE 30'S AT 09:17 THIS MORNING.
[2019-06-09 12:00] VITALS: BP 135/58
--- NOTE | 2019-06-09 12:27 | NUR ---
PHYSICAL THERAPY Patient supine in bed at time of arrival. Performance of bed mobility- patient transitions supine<>sit requiring Deidra-modA with use of bed rail with emphasis on safety and technique-- increased time required for completion of task. Patient sat EOB with 1-2xUE support and SBA- close supervision, with emphasis on core/trunk strength and balance while tapping INSTRUCTIONAL SERVICES LIBRARIAN hands in all planes/elevations. Patient performed (L) LE ther-ex, for strength, ROM and endurance: marches, LAQ, hip ABD/ADD, ankle PF/DF x 10 reps. Intermittent rest breaks provided due to fatigue. Patient requesting to lay down due needing to use bed pollock. Patient peformed lateral scooting with CGA-Deidra and use of bed rail. Patient provided cues for technique for safe, efficient transfer. Patient supine in bed at time of arrival with CARRIAGE OPERATOR present in room. Stacie Fox PTA
[2019-06-09 16:00] VITALS: BP 131/78
[2019-06-09 20:00] VITALS: BP 134/86; BP 156/61
[2019-06-10] VITALS: BP 129/76
[2019-06-10 07:31] LABS: BASO % 0.6 % (0.0-1.0); EOS # 0.3 10*3/uL (0.0-0.4); EOS % 3.7 % (1.0-4.0); HEMOGLOBIN 8.7 g/dl (12.0-16.0); LYMPH % 13.5 % (27.0-41.0); MEAN CELL VOLUME 101.6 fl (81.0-99.0); MEAN CORPUSCULAR HGB 28.5 pg (27.0-31.0); MEAN CORPUSCULAR HGB CONC 28.1 g/dl (33.0-37.0); MEAN PLATELET VOLUME 11.3 fl (9.6-12.3); MONO # 0.4 10*3/uL (0.1-1.0); MONO % 5.9 % (3.0-9.0); NEUT # 5.5 10*3/uL (2.3-7.9); NEUT % 75.9 % (47.0-73.0); PLATELET COUNT AUTOMATED 155 10*3/uL (130-400); RED BLOOD COUNT 3.05 10*6/uL (4.10-5.10); WHITE BLOOD COUNT 7.3 10*3/uL (4.8-10.8)
[2019-06-10 07:49] LABS: CREATININE 2.92 mg/dL (0.55-1.02)
--- NOTE | 2019-06-10 08:57 | NUR ---
Discussed discharge planning with Dr. Mcgraw regarding home with palliative care and home health. Reached out to [facility] at [facility] to see where the process if with getting the patient [facility] who they partner with. Awaiting return call.
--- NOTE | 2019-06-10 10:37 | NUR ---
Spoke to [facility] from [facility] who is reaching out to [facility] to see what the status is for the patient. Informed looking for possible discharge. Awaiting response.
[2019-06-10 12:00] VITALS: BP 120/52
--- NOTE | 2019-06-10 14:34 | NUR ---
DR POSADA IN TO SEE PT AND CHANGED THE DRESSING TO LEFT LEG/FOOT.
[2019-06-10 16:00] VITALS: BP 138/57
--- NOTE | 2019-06-10 19:45 | NUR ---
PT AWAKE IN BED. DENIES ANY NEEDS AT PRESENT TIME. WILL MONITOR. CALL LIGHT IN REACH.
[2019-06-10 20:00] VITALS: BP 148/68
[2019-06-11] VITALS: BP 117/49
--- NOTE | 2019-06-11 04:56 | NUR ---
Upon discharge recommend patient to follow up for wound care in outpatient setting continue current wound care orders at discharging facility.
[2019-06-11 06:30] VITALS: BP 136/62
[2019-06-11 08:00] VITALS: BP 142/55
--- NOTE | 2019-06-11 10:22 | NUR ---
OT NOTE PATIENT SEEN 1:1 OT THIS DATE 15 MINUTES. PATIENT IN BED UPON ARRIVAL THIS DATE. COMPLETED SUPINE TO SIT EOB CGA USE RAIL AND INCREASE TIME. COMPLETED UB DRESSING DOFF/DON GOWN SBA AFTER ARNADA AND GROOMING TASK SBA AFTER ARANDA COMB HAIR AND WASH FACE SEATED EOB. COMPLETED SIT TO SUPINE CGA. PATIENT IN BED WITH BED ALARM IN TACT AND CALL LIGHT WITHIN REACH. CONTINUE TOWARDS PLAN OF CARE. VIELKA CAMPUZANO/Tyler
[2019-06-11 12:00] VITALS: BP 119/54
--- NOTE | 2019-06-11 13:30 | NUR ---
IN TO SEE PATIENT AND CHANGE PATIENT'S DRESSINGS PER ORDER.
[2019-06-11] MEDS ORDERED: APRESOLINE10 MG PO (13:59)
[2019-06-11] MEDS ORDERED: BUMETANIDE1 MG PO (13:59)
[2019-06-11 16:00] VITALS: BP 130/68
--- NOTE | 2019-06-11 16:15 | NUR ---
PATIENT REFUSING DISCHARGE PHOTOS. DRESSINGS CHANGED PER PODIATRY.
--- NOTE | 2019-06-11 17:13 | NUR ---
DAUGHTER HERE TO TRANSPORT PATIENT HOME.
--- NOTE | 2019-06-12 07:32 | NUR ---
PHYSICAL THERAPY CO-SIGN I approve of the Physical Therapy notes written above. Aminah Waggoner PT
--- NOTE | 2019-06-12 07:45 | NUR ---
OCCUPATIONAL THERAPY CO-SIGN I approve of the Occupational Therapy notes written above. МАРИЯ STARR, OTR/L
--- NOTE | 2019-06-12 13:13 | NUR ---
notified [facility] of patients discharge, faxed DC summary and DC meds.
[2019-06-22] MEDS ORDERED: BUMETANIDE1 MG PO (14:01)
== END 2019-06-11 17:13 | disposition home or self-care (01) | DRG 682 ==
LOC: ED 05:29 → 4E 07:21 → 5E 07:21 → EDHOLD 07:21 → 4E 07:51 → 5E 06-10 19:34
PROVIDERS: Emergency Medicine; Family Medicine; Internal Medicine Nephrology; Student in an Organized Health Care Education/Training Program; ADMIT Internal Medicine
DX: N17.0 Acute kidney failure with tubular necrosis (principal); E43 Unspecified severe protein-calorie malnutrition; I50.23 Acute on chronic systolic (congestive) heart failure; I13.2 Hypertensive heart and chronic kidney disease with heart failure and with stage 5 chronic kidney disease, or end stage renal disease; L97.422 Non-pressure chronic ulcer of left heel and midfoot with fat layer exposed; N17.9 Acute kidney failure, unspecified; N18.5 Chronic kidney disease, stage 5; D53.9 Nutritional anemia, unspecified; E88.09 Other disorders of plasma-protein metabolism, not elsewhere classified; E87.5 Hyperkalemia; E11.621 Type 2 diabetes mellitus with foot ulcer; E11.69 Type 2 diabetes mellitus with other specified complication; E03.9 Hypothyroidism, unspecified; E11.49 Type 2 diabetes mellitus with other diabetic neurological complication; I25.10 Atherosclerotic heart disease of native coronary artery without angina pectoris; E83.41 Hypermagnesemia; K56.41 Fecal impaction; E11.22 Type 2 diabetes mellitus with diabetic chronic kidney disease; I25.5 Ischemic cardiomyopathy; Z53.20 Procedure and treatment not carried out because of patient's decision for unspecified reasons; E11.51 Type 2 diabetes mellitus with diabetic peripheral angiopathy without gangrene; R62.7 Adult failure to thrive; Z89.611 Acquired absence of right leg above knee; Z68.30 Body mass index [BMI] 30.0-30.9, adult; Z95.5 Presence of coronary angioplasty implant and graft; Z88.8 Allergy status to other drugs, medicaments and biological substances; Z79.899 Other long term (current) drug therapy; Z90.710 Acquired absence of both cervix and uterus; Z98.42 Cataract extraction status, left eye; Z98.41 Cataract extraction status, right eye; Z96.1 Presence of intraocular lens; Z98.84 Bariatric surgery status; Z80.3 Family history of malignant neoplasm of breast; Z80.41 Family history of malignant neoplasm of ovary; Z80.0 Family history of malignant neoplasm of digestive organs; Z82.49 Family history of ischemic heart disease and other diseases of the circulatory system; Z87.891 Personal history of nicotine dependence; Z79.82 Long term (current) use of aspirin

== ENCOUNTER 2019-06-26 12:27 | Inpatient (IN) | payer OTHER, MEDICAID ==
[2019-06-26] VITALS (10 sets, daily range): BP systolic 62–142; BP diastolic 40–98
[~2019-06-26] VITALS: Ht 172.7 cm; Wt 77.8 kg
[~2019-06-26 12:27] MED LIST changes: +APRESOLINE10 MG PO; +AUGMENTIN 875875 MG PO; +BUMETANIDE1 MG PO; +CARVEDILOL12.5 MG PO; +CETIRIZINE HYDR10 MG PO; +FUROSEMIDE40 MG PO; +GOOD NEIGHBOR100 M2 PO; +LEVOTHYROXINE175 MCG PO; +SANTYL30 GM T; +SEPTDS PO
--- NOTE | 2019-06-26 12:31 | NUR ---
PT PLACED IN [place] FOR HYPOTENSION. BREANNE FLORES AWARE SITTING AT RED POD DESK.
[2019-06-26 13:03] LABS: BASO % 0.5 % (0.0-1.0); EOS # 0.2 10*3/uL (0.0-0.4); EOS % 2.4 % (1.0-4.0); HEMATOCRIT 29.1 % (37.0-47.0); HEMOGLOBIN 8.4 g/dl (12.0-16.0); LYMPH # 0.9 10*3/uL (1.3-4.4); MEAN CELL VOLUME 96.4 fl (81.0-99.0); MEAN CORPUSCULAR HGB 27.8 pg (27.0-31.0); MEAN CORPUSCULAR HGB CONC 28.9 g/dl (33.0-37.0); MEAN PLATELET VOLUME 11.3 fl (9.6-12.3); MONO # 0.5 10*3/uL (0.1-1.0); MONO % 6.6 % (3.0-9.0); NEUT # 6.1 10*3/uL (2.3-7.9); NEUT % 78.1 % (47.0-73.0); PLATELET COUNT AUTOMATED 249 10*3/uL (130-400); RED BLOOD COUNT 3.02 10*6/uL (4.10-5.10); RED CELL DISTRI WIDTH 14.2 % (0-14.5); WHITE BLOOD COUNT 7.8 10*3/uL (4.8-10.8)
[2019-06-26 13:12] LABS: ACT PARTIAL THROMBO TIME 26.3 SECONDS (20.0-32.1); INTERNATIONAL NORM RATIO 1.1 (2.0-3.5)
--- NOTE | 2019-06-26 13:18 | NUR ---
PT WITH MULTIPLE HEALING AND SCABS AREAS NOTED TO [facility] NURSE TO ED FOR PHOTOGRAPHS @ THIS TIME AND NOTED AREAS @ DIFFERENT STAGES OF HEALING.
[2019-06-26 13:19] LABS: CREATININE 2.38 mg/dL (0.55-1.02); POTASSIUM 4.3 mmol/L (3.5-5.1); TOTAL PROTEIN 6.5 gm/dL (6.4-8.2); TROPONIN I 0.036 ng/ml (<0.045)
--- NOTE | 2019-06-26 13:27 | NUR ---
PT REPOSITIONED FOR COMFORT WITH SAFETY PRECAUTIONS INTACT AND CALL LIGHT WITHIN REACH,FAMILY REMAINS @ BEDSIDE.
--- NOTE | 2019-06-26 14:49 | NUR ---
PT W/O COMPLAINTS VOICED AND "FEELING ALOT BETTER",FAMILY @ BEDSIDE.
--- NOTE | 2019-06-26 15:39 | NUR ---
KATT SANDS [id number] Please refer to the physician's history and physical for past medical history, comorbid conditions, and allergies. Diagnosis: NEAR SYNCOPE HYPOTENSION Vitor Score: , WOUND DESCRIPTIONS: Wound Number: 1 Location of the wound: LEFT HEEL Type of wound: UNSTAGEABLE Size: 4.1cm X 6.3cm X 0.1cm Tunneling: NONE Undermining: NONE Sinus Tract: NONE Presence of Exudate: NONE Amount: None Color: Black, RED Odor: None Periwound Skin Appearance: Erythema Wound edges: APPROXIMATED Pain (associated with wound): DENIED AT TIME OF ASSESSMENT How does patient state this happened? PATIENT STATES THAT THIS AREA STARTED A BLISTER WEEKS AGO. THE BLISTER "POPPED AND THIS IS WHAT I WAS LEFT WITH." PATIENT STATES THE DRESSING HAS BEEN STICKING TO THIS AREA AND HAS TO "SOAK THE DRESSING" WITH SALINE TO REMOVE. Wound Number: 2 Location of the wound: LEFT 2ND TOE Type of wound: UNSTAGEABLE Size: 0.9cm X 1.5cm X <0.1cm Tunneling: NONE Undermining: NONE Sinus Tract: NONE Presence of Exudate: NONE Amount: None Color: Black, BROWN Odor: None Periwound Skin Appearance: Normal Wound edges: CLOSED Pain (associated with wound): DENIED AT TIME OF ASSESSMENT How does patient state this happened? PATIENT STATES THESE AREAS HAPPEN WHEN SHE USES HER FOOT TO MOVE HERSELF IN HER WHEELCHAIR AT HOME. Wound Number: 3 Location of the wound: LEFT 3RD TOE Type of wound: UNSTAGEABLE Size: 0.5cm X 0.5cm X <0.1cm Tunneling: NONE Undermining: NONE Sinus Tract: NONE Presence of Exudate: NONE Amount: None Color: Brown, BLACK Odor: None Periwound Skin Appearance: Normal Wound edges: CLOSED Pain (associated with wound): DENIED AT TIME OF ASSESSMENT How does patient state this happened? PATIENT STATES THESE AREAS HAPPEN WHEN SHE USES HER FOOT TO MOVE HERSELF IN HER WHEELCHAIR AT HOME. WOUND #4 RIGHT AKA SURGICAL SITE INTACT SCAB NOTED. NO DRAINAGE, ERYTHEMA OR OPEN AREA NOTED. PATIENT STATES THAT SHE HAS RECENTLY SEEN THE SURGEON THAT DID THE AMPUTATION AND STATES THE SURGEON WAS VERY PLEASED WITH THE APPROXIMATION OF THE INCISION. PATIENT STATES THAT SURGEON INTRUCTED PATIENT TO USE SANTYL ON THE SCAB AREA AT NIGHT. INTACT SCABBED AREAS NOTED TO BILATERAL ARMS. NO DRAINGE NOTED FROM THESE AREAS. PATIENT DENIES PAIN TO THESE AREAS. PATIENT STATES THAT SHE BUMPS HER ARMS ALL THE TIME AND DOESN'T REMEMBER HOW SHE GOT MOST OF THESE AREAS. PATIENT DENIED ANY OPEN AREAS TO BUTTOCKS OR COCCYX AT TIME OF ASSESSMENT. Surface the patient is resting on: Isoflex SKIN PREVENTION RECOMMENDATION: 1. Pressure redistribution support surface as appropriate 2. Elevate heels 3. Remove boots/TEDS every shift and reapply 4. Head of bed 30 degrees as tolerated 5. Assess nutrition and hydration 6. Manage moisture 7. Avoid the use of containment devices while in bed 8. Use absorptive products on surfaces limit layers of linens on bed 9. Turn and reposition every 1-2 hours in bed and every 1 hour in chair as tolerated 10. Weight shifts every 15 minutes while up in chair 11. Offloading with pillows or device to keep heels elevated off bed 12. Monitor skin at least every shift 13. Inspect under medical devices twice a day WOUND TREATMENT RECOMMENDATIONS: CONSULT PODIATRY FOR LEFT HEEL, LEFT 2ND AND 3RD TOES. DRESSING CHANGE: CLEANSE LEFT HEEL WITH NSS APPLY BETADINE TO WOUND BED AND COVER WITH VERSATEL AND DSD. CHANGE DAILY AND PRN SOILING. DRESSING CHANGE: CLEANSE LEFT 2ND AND 3RD TOES WITH NSS APPLY BETADINE ALLOW TO DRY AND LEAVE OPEN TO AIR. RIGHT AKA SURGICAL SANTYL ONCE AT NIGHT.
--- NOTE | 2019-06-26 16:30 | NUR ---
The assessment has been completed. ELI OCHOA Time: 1629 A 69 year old FEMALE admitted to 5E under services of JOSE ANTONIO LI DO. Pt. arrived via ambulance from ER. Chief complaint: NEAR SYNCOPAL EPISODE. ELI OCHOA
--- NOTE | 2019-06-26 17:18 | NUR ---
DR POPE MADE AWARE OF PTS MED REC BEINGUP TO DATE. ALSO CONFIRMED MS STATUS
[2019-06-26 18:06] LABS: BILIRUBIN NEGATIVE (NEGATIVE); CLARITY CLOUDY (CLEAR); COLOR YELLOW (YELLOW); GLUCOSE NEGATIVE (NEGATIVE)
[2019-06-26 18:07] LABS: BLOOD TRACE-INTACT (NEGATIVE); KETONE NEGATIVE (NEGATIVE); LEUKO ESTERASE 3+ (NEGATIVE); NITRITE NEGATIVE (NEGATIVE); SPECIFIC GRAVITY 1.015 (1.005-1.030); UROBILINOGEN 0.2 E.U./dl (0.2-1.0)
[2019-06-26 18:21] LABS: BACTERIA 2+; RBC 0-2 rbc/hpf (0-2); WBC TNTC wbc/hpf (0-5)
--- NOTE | 2019-06-26 19:40 | NUR ---
PT ASLEEP IM BED. RESPIRATIONS EASY. NO S/S OF DISTRESS NOTED. O2 IN USE. WILL MONITOR. CALL LIGHT IN REACH.
[2019-06-27] VITALS: BP 128/63
[2019-06-27 06:25] LABS: BASO % 0.4 % (0.0-1.0); EOS # 0.1 10*3/uL (0.0-0.4); EOS % 1.8 % (1.0-4.0); HEMATOCRIT 27.1 % (37.0-47.0); HEMOGLOBIN 7.9 g/dl (12.0-16.0); LYMPH # 0.8 10*3/uL (1.3-4.4); LYMPH % 11.3 % (27.0-41.0); MEAN CELL VOLUME 94.8 fl (81.0-99.0); MEAN CORPUSCULAR HGB 27.6 pg (27.0-31.0); MEAN CORPUSCULAR HGB CONC 29.2 g/dl (33.0-37.0); MONO # 0.6 10*3/uL (0.1-1.0); MONO % 7.7 % (3.0-9.0); NEUT # 5.5 10*3/uL (2.3-7.9); NEUT % 77.8 % (47.0-73.0); PLATELET COUNT AUTOMATED 231 10*3/uL (130-400); RED BLOOD COUNT 2.86 10*6/uL (4.10-5.10); RED CELL DISTRI WIDTH 14.1 % (0-14.5); WHITE BLOOD COUNT 7.1 10*3/uL (4.8-10.8)
[2019-06-27 06:34] LABS: CREATININE 2.36 mg/dL (0.55-1.02); PHOSPHOROUS 3.8 mg/dL (2.5-4.9); POTASSIUM 4.3 mmol/L (3.5-5.1)
--- NOTE | 2019-06-27 07:00 | NUR ---
VITALS STABLE. ALERT AND ORIENTED X 3. PLEASANT AND COOPERATIVE. AYSHA. CAPILLARY REFILL < 3 SECONDS. SKIN TURGOR NON-TENTING. POSITIVE PEDAL PULSE. HEART SOUNDS NORMAL, RATE OF 74. LUNGS DIMINISHED BUT CLEAR THROUGHOUT. RESPIRATIONS EASY AND NON-LABORED, RATE OF 16. SPO2 92% ON 2L N/C. ABDOMEN SOFT, NON-TENDER, NON-DISTENDED. BOWEL SOUNDS X 4. SKIN WARM, DRY AND INTACT- REDDEND AREA ON COCCYX. IV SITE IN RIGHT AC INTACT. DRESSING ON LEFT FOOT DRY AND INTACT. NO COMPLAINTS AT THIS TIME. WILL CONTINUE TO ASSESS. JETT IRIZARRY [facility]
--- NOTE | 2019-06-27 07:00 | NUR ---
VITALS STABLE. ALERT AND ORINETED X 3. PLEASANT AND COOPERATIVE. AYSHA. CAP REFILL < 3 SECONDS. SKIN TURGOR NON-TENTING. POSTIVE PEDAL PULSE. HEART SOUNDS NORMAL, RATE OF 74. LUNGS DIMINISHED BUT CLEAR THROUGHOUT. RESPIRATIONS EASY AND NON-LABORED, RATE OF 16. SPO2 92% ON 2L N/C. ABDOMEN SOFT, NON-TENDER, NON-DISTENDED. BS X 4. SKIN WARM DRY AND INTACT. REDDENED AREA ON COCCYX. IV SITE ON LEFT AC INTACT. DRESSING ON LEFT FOOT DRY AND INTACT. NO COMPLAINTS AT THIS TIME. WILL CONTINUE TO ASSESS. JETT IRIZARRY [facility]
[2019-06-27 08:00] VITALS: BP 116/70
--- NOTE | 2019-06-27 08:20 | NUR ---
Dr. Gomez notified of wound care recommendations.
--- NOTE | 2019-06-27 08:48 | NUR ---
DR. POPE IN TO SEE PT. SEE CHART FOR NEW ORDERS. JETT IRIZARRY [facility]
--- NOTE | 2019-06-27 09:54 | NUR ---
DRESSING ON LEFT HEEL CHANGED USING ASEPTIC TECHNIQUE. CLEANED WITH BETADINE. ABD PAD APPLIED AND COVERED WITH ROSA WRAP. TOES ON LEFT FOOT CLEANED WITH BETADINE. PT TOLERATED WELL. WILL CONTINUE TO ASSESS. JETT DUNN
--- NOTE | 2019-06-27 11:40 | NUR ---
PHYSICAL THERAPY Attempted to see pt for evaluation unavailable speaking with medical staff personale, pt states she does not want therapy at this time she plans on hopefully leaving going home today, discussed rehab pt cont to want to go home. Pt was agreeable to being seen after lunch for at least sitting at the EOB. Spoke with nurse regarding pt asking when she would be able to leave. Nsg states she will speak with patient will follow in PM Aminah Waggoner PT
[2019-06-27 12:00] VITALS: BP 150/78
--- NOTE | 2019-06-27 13:17 | NUR ---
TING [facility] OFFICE NOTIFIED OF CONSULT AND WILL SEE PATIENT LATER ON TODAY.
--- NOTE | 2019-06-27 13:19 | NUR ---
Faxed palliative care order to [facility] and notified [facility]
--- NOTE | 2019-06-27 14:00 | NUR ---
Occupational therapy orders received and chart reviewed. Patient was supine in bed upon arrival stating she was being discharged. Patient's nurse confirmed. Thank you for the referral. Rebecca Malone OTR/L
--- NOTE | 2019-06-27 14:03 | NUR ---
PATIENT REFUSED DISCHARGE PHOTOS DUE TO DRESSINGS CHANGED EARLIER TODAY BY STUDENT NURSE.
--- NOTE | 2019-06-27 14:24 | NUR ---
PHYSICAL THERAPY Attempted to see pt for evaluation per pt and nurse pt being discharged to home today. Per pt she would rather just rest and safe her energy for home. Will follow in the AM if patient does not get discharged. Aminah Waggoner PT
--- NOTE | 2019-06-27 14:42 | NUR ---
Discharge instructions reviewed with patient/family. Patient receptive and verbalizes understanding. Follow-up care arranged. Written instructions given to patient/family. AIDAN GREGORY.
--- NOTE | 2019-06-27 15:00 | NUR ---
Talent Sourcer in to talk to patient. Patient states lives at HOME with GRANDDONAVON. There are FEW steps in the home. Physician: Jamila SARABIA Pharmacy: [facility] health services: [facility] Patient's level of ADLs: MODERATE ASSIST Patient has working utilities: YES DME: 4 WALKERS, WHEEL CHAIR, RAMP, R LEG PROSTESIS, HOSPITAL BED Follow-up physician's appointment after d/c: WILL BE MADE BY HOSPITALIST NURSE DIRECTOR ON DISCHARGE Does patient want to access PORTAL?: NO Discharge plan PT LIVES AT HOME WITH GRANDSON. STATES DAUGHTER ALSO CHECKS ON HER FREQUENTLY. PT STATES SHE HAS 4 WALKERS, WHEEL CHAIR, RAMP ON HOUSE, RIGHT LEG PROSTESIS, AND HOSPITAL BED. SHE ALSO HAS [employer]. TALKED WITH PT ABOUT SKILLED STAY BUT SHE REFUSES, STATING I WAS THERE BEFORE AND LAID IN BED FOR 23 OUT OF 24 HOURS AND DID NOT GET ANY BETTER, I AM GOING HOME. WILL CONTINUE TO FOLLOW. STATES SHE WILL HAVE A RIDE HOME ON DISCHARGE.. ADRIAN BUITRAGO
--- NOTE | 2019-06-27 15:30 | NUR ---
TING JACOBS IN TO SEE PATIENT REGARDING CONSULT.
--- NOTE | 2019-06-27 15:43 | NUR ---
PATIENT'S SON HERE TO TRANSPORT PATIENT HOME.
== END 2019-06-27 15:45 | disposition home health service (06) | DRG 314 ==
LOC: ED 12:27 → EDHOLD 15:07 → 5E 15:07
PROVIDERS: Emergency Medicine; Internal Medicine; ADMIT Family Medicine
DX: I95.9 Hypotension, unspecified (principal); E43 Unspecified severe protein-calorie malnutrition; I13.2 Hypertensive heart and chronic kidney disease with heart failure and with stage 5 chronic kidney disease, or end stage renal disease; N18.5 Chronic kidney disease, stage 5; I50.22 Chronic systolic (congestive) heart failure; R55 Syncope and collapse; E86.0 Dehydration; Z51.5 Encounter for palliative care; Z66 Do not resuscitate; E11.65 Type 2 diabetes mellitus with hyperglycemia; E78.5 Hyperlipidemia, unspecified; E11.42 Type 2 diabetes mellitus with diabetic polyneuropathy; E03.9 Hypothyroidism, unspecified; E11.610 Type 2 diabetes mellitus with diabetic neuropathic arthropathy; E11.22 Type 2 diabetes mellitus with diabetic chronic kidney disease; I25.10 Atherosclerotic heart disease of native coronary artery without angina pectoris; D53.9 Nutritional anemia, unspecified; E83.41 Hypermagnesemia; Z96.1 Presence of intraocular lens; Z98.42 Cataract extraction status, left eye; Z98.41 Cataract extraction status, right eye; Z95.5 Presence of coronary angioplasty implant and graft; Z79.4 Long term (current) use of insulin; Z98.84 Bariatric surgery status; Z68.26 Body mass index [BMI] 26.0-26.9, adult; Z89.611 Acquired absence of right leg above knee; I25.2 Old myocardial infarction; Z89.412 Acquired absence of left great toe; Z90.710 Acquired absence of both cervix and uterus; Z87.891 Personal history of nicotine dependence; Z82.49 Family history of ischemic heart disease and other diseases of the circulatory system; Z80.3 Family history of malignant neoplasm of breast; Z80.41 Family history of malignant neoplasm of ovary; Z80.0 Family history of malignant neoplasm of digestive organs; Z88.8 Allergy status to other drugs, medicaments and biological substances; Z79.82 Long term (current) use of aspirin; Z79.899 Other long term (current) drug therapy